=== PATIENT | female | born 1930 | race Caucasian/White ===

== ENCOUNTER 2020-08-28 02:26 | Inpatient (IN) | payer MEDICAID, MEDICARE ==
[~2020-08-28] VITALS: Ht 157.5 cm; Wt 58.6 kg
[2020-08-28] VITALS (31 sets, daily range): BP systolic 103–160; BP diastolic 54–82
[2020-08-28] MEDS ORDERED: NTG 50 MG/D5W250 ML BOTTL 250 ML IV ONE ×2 (02:28→02:30)
[2020-08-28] MEDS ORDERED: NITROGLYCERIN 0.4 MG/TAB BOTTLE ONE (02:28)
[2020-08-28] MEDS ORDERED: NITROGLYCERIN 0.4 MG/TAB BOTTLE SL ONE (02:30)
[2020-08-28] MEDS ORDERED: ENALAPRILAT DIHYD. (2.5MG/2ML) 1.25 MG/ML VIAL IV ONE ×2 (02:30→02:41)
[2020-08-28 02:40] LABS: BASOPHILS # (AUTO) 0.1 /CMM (0.0-0.2); BASOPHILS % (AUTO) 0.6 % (0.0-2.0); EOSINOPHILS % (AUTO) 1.5 % (0.0-6.0); HEMATOCRIT 31 % (33-45); HEMOGLOBIN 10.7 g/dL (11.5-14.8); LYMPHOCYTES # (AUTO) 1.9 /CMM (0.8-4.8); LYMPHOCYTES % (AUTO) 18.7 % (20.0-44.0); MEAN CORPUSCULAR HGB CONC 34 g/dl (31.0-36.0); MEAN CORPUSCULAR VOLUME 106 fL (82-100); MONOCYTES # (AUTO) 0.8 /CMM (0.1-1.30); MONOCYTES % (AUTO) 7.4 % (2.0-12.0); NEUTROPHILS # (AUTO) 7.4 /CMM (1.8-8.9); NEUTROPHILS % (AUTO) 71.8 % (43.0-81.0); PLATELET COUNT (AUTO) 284 /CMM (150-450); RED BLOOD CELL COUNT(AUTO) 2.96 MIL/uL (4.0-5.2); WHITE BLOOD COUNT (AUTO) 10.4 K/uL (4.3-11.0)
[2020-08-28 02:48] LABS: CALCIUM, SERUM 8.5 mg/dL (8.5-10.1); CARBON DIOXIDE 36 mmol/L (21-32); CHLORIDE 98 mmol/L (98-107); CREATININE 6.8 mg/dL (0.6-1.3); GLUCOSE 170 mg/dL (74-106); POTASSIUM 4.2 mmol/L (3.5-5.1); SODIUM SERUM 141 mmol/L (136-145); UREA NITROGEN, BLOOD 60 mg/dL (7-18)
[2020-08-28 03:01] LABS: ALANINE AMINOTRANSFERASE 35 U/L (12-78); ALBUMIN 4.4 g/dL (3.4-5.0); ALKALINE PHOSPHATASE 72 U/L (46-116); ASPARTATE AMINOTRANSFERASE 41 U/L (15-37); BILIRUBIN,DIRECT 0.1 mg/dL (0.0-0.2); BILIRUBIN,TOTAL 0.4 mg/dL (0.2-1.0); TOTAL PROTEIN, SERUM 8.1 g/dL (6.4-8.2)
[2020-08-28 03:11] LABS: BASOPHILS % (MANUAL) 0 % (0.0-2.0); EOSINOPHILS % (MANUAL) 0 % (0-4); LYMPHOCYTES % (MANUAL) 18 % (16-48); MONOCYTES % (MANUAL) 11 % (0-11.0); NEUTROPHILS % (MANUAL) 71 (42-76)
[2020-08-28] MEDS ORDERED: METO-358 PO (03:59)
[2020-08-28] MEDS ORDERED: PHEN100C12 PO (03:59)
[2020-08-28] MEDS ORDERED: CLON0.1T PO (03:59)
[2020-08-28] MEDS ORDERED: LISI20TA31 PO (03:59)
[2020-08-28] MEDS ORDERED: LEVO112T5 PO (03:59)
[2020-08-28] MEDS ORDERED: ATOR40TA PO (03:59)
[2020-08-28] MEDS ORDERED: FERR325T28 PO (03:59)
[2020-08-28] MEDS ORDERED: MECL-159 PO (03:59)
[2020-08-28] MEDS ORDERED: Z GUARD REMEDY 2 OZ OINT TP PRN (05:30)
[2020-08-28] MEDS ORDERED: MAGNESIUM HYDROXIDE 30 ML UDC PO PRN (05:30)
[2020-08-28] MEDS ORDERED: ZOLPIDEM TARTRATE 5 MG TABLET PO PRN (05:30)
[2020-08-28] MEDS ORDERED: ONDANSETRON HCL/PF 4 MG/2 ML VIAL IVP PRN (05:30)
[2020-08-28] MEDS ORDERED: MAG HYDROX/AL HYDROX/SIMETH 30 ML UDC PO PRN (05:30)
[2020-08-28] MEDS ORDERED: CLONIDINE HCL 0.1 MG TABLET PO PRN (05:30)
[2020-08-28] MEDS ORDERED: ACETAMINOPHEN 325 MG TABLET PO PRN (05:30)
[2020-08-28] MEDS: LEVOTHYROXINE SODIUM 112 MCG TABLET PO SCH (07:30)
[2020-08-28 09:16] LABS: ABG BASE EXCESS 7.2 mmol/L; ABG OXYGEN SATURATION 95.8 % (92.0-98.5); ABG PCO2 47.8 mmHg (35.0-45.0); ABG PH 7.445 (7.350-7.450); ABG PO2 85.1 mmHg (75.0-100.0); AaDO2 87.1 mmHg; COHb 0.1 % (0.5-1.5); MetHb 0.3 % (0.0-1.5); O2Hb 95.4 % (94.0-97.0); SITE, ABG Left Brachial
[2020-08-28] MEDS: FERROUS SULFATE (325 MG) 325 MG/TAB TABLET PO SCH (09:28)
[2020-08-28] MEDS: MECLIZINE HCL 25 MG TABLET PO SCH (09:28)
[2020-08-28] MEDS: PHENYTOIN EXTENDED RELEASE 100 MG CAPSULE PO SCH (09:28)
[2020-08-28] MEDS: ATORVASTATIN 40 MG TABLET PO SCH (09:28)
[2020-08-28] MEDS ORDERED: CALC667C6 PO (10:33)
[2020-08-28] MEDS ORDERED: NIFE90TA61 PO (10:33)
[2020-08-28] MEDS ORDERED: PHEN32.46 PO (10:33)
[2020-08-28] MEDS: METOPROLOL SUCCINATE 50 MG TAB.SR.24H PO SCH (14:09)
[2020-08-28] MEDS: LISINOPRIL (20MG) 20 MG TABLET PO SCH (14:09)
[2020-08-29] VITALS: BP 132/68
[2020-08-29 04:00] VITALS: BP 136/78
[2020-08-29 07:13] LABS: BASOPHILS % (AUTO) 0.7 % (0.0-2.0); EOSINOPHILS % (AUTO) 1.7 % (0.0-6.0); HEMATOCRIT 26 % (33-45); HEMOGLOBIN 8.6 g/dL (11.5-14.8); LYMPHOCYTES % (AUTO) 14.5 % (20.0-44.0); MEAN CORPUSCULAR HGB CONC 34 g/dl (31.0-36.0); MEAN CORPUSCULAR VOLUME 107 fL (82-100); MONOCYTES # (AUTO) 0.7 /CMM (0.1-1.30); NEUTROPHILS # (AUTO) 5.2 /CMM (1.8-8.9); NEUTROPHILS % (AUTO) 73.1 % (43.0-81.0); PLATELET COUNT (AUTO) 212 /CMM (150-450); RED BLOOD CELL COUNT(AUTO) 2.38 MIL/uL (4.0-5.2); WHITE BLOOD COUNT (AUTO) 7.1 K/uL (4.3-11.0)
[2020-08-29 07:38] LABS: CHOLESTEROL 157 mg/dL (<200); HDL CHOLESTEROL 61 mg/dL (40-60); LDL 71 mg/dL (0-99); TRIGLYCERIDES 99 mg/dL (30-150)
[2020-08-29 07:42] LABS: CALCIUM, SERUM 7.9 mg/dL (8.5-10.1); CARBON DIOXIDE 33 mmol/L (21-32); CHLORIDE 106 mmol/L (98-107); CREATININE 5.7 mg/dL (0.6-1.3); GLUCOSE 92 mg/dL (74-106); MAGNESIUM 2.4 mg/dL (1.8-2.4); PHOSPHORUS 4.3 mg/dL (2.5-4.9); POTASSIUM 4.6 mmol/L (3.5-5.1); SODIUM SERUM 147 mmol/L (136-145); UREA NITROGEN, BLOOD 42 mg/dL (7-18)
[2020-08-29 08:00] VITALS: BP 138/78
[2020-08-29 08:42] LABS: EOSINOPHILS % (MANUAL) 3 % (0-4); LYMPHOCYTES % (MANUAL) 11 % (16-48); MONOCYTES % (MANUAL) 7 % (0-11.0); NEUTROPHILS % (MANUAL) 79 (42-76)
[2020-08-29 08:53] LABS: IRON, SERUM 80 ug/dl (50-175)
[2020-08-29] MEDS: MECLIZINE HCL 25 MG TABLET PO SCH (09:12)
[2020-08-29] MEDS: ATORVASTATIN 40 MG TABLET PO SCH (09:12)
[2020-08-29] MEDS: PHENYTOIN EXTENDED RELEASE 100 MG CAPSULE PO SCH (09:12)
[2020-08-29] MEDS: FERROUS SULFATE (325 MG) 325 MG/TAB TABLET PO SCH (09:12)
[2020-08-29] MEDS: LEVOTHYROXINE SODIUM 112 MCG TABLET PO SCH (09:12)
[2020-08-29] MEDS: METOPROLOL SUCCINATE 50 MG TAB.SR.24H PO SCH (09:13)
[2020-08-29] MEDS: LISINOPRIL (20MG) 20 MG TABLET PO SCH (09:13)
[2020-08-29 09:53] LABS: TOTAL IRON BINDING CAPACITY 252 ug/dl (250-450)
[2020-08-29 12:00] VITALS: BP 142/73
== END 2020-08-29 17:46 | disposition home or self-care (01) | DRG 194 ==
LOC: EDBD 02:31 → ER 02:31 → TRANSITION 05:55 → ICU 07:43 → TELE1 15:24
PROVIDERS: ADMIT Nurse Practitioner Acute Care; ATTEND Internal Medicine
PROC: 5A1D70Z Performance of Urinary Filtration, Intermittent, Less than 6 Hours Per Day (ICD-10-PCS; principal; 2020-08-28)
DX: I13.2 Hypertensive heart and chronic kidney disease with heart failure and with stage 5 chronic kidney disease, or end stage renal disease (principal); J96.01 Acute respiratory failure with hypoxia; I48.91 Unspecified atrial fibrillation; N18.6 End stage renal disease; G40.909 Epilepsy, unspecified, not intractable, without status epilepticus; D63.1 Anemia in chronic kidney disease; E03.9 Hypothyroidism, unspecified; E78.5 Hyperlipidemia, unspecified; Z20.822 Contact with and (suspected) exposure to COVID-19; Z99.2 Dependence on renal dialysis; I50.31 Acute diastolic (congestive) heart failure; Z91.19 Patient's noncompliance with other medical treatment and regimen; Z91.11 Patient's noncompliance with dietary regimen; M89.8X9 Other specified disorders of bone, unspecified site
CPT/HCPCS: 36415; 36600; 71045-TC; 80048-TC; 80061-TC; 80076-TC; 82803-TC; 83540-TC; 83735-TC; 83880; 83970; 84100-TC; 84484-TC; 85025-TC; 85730-TC; 87081-TC; 93307-TC; 99082-TC; C9803; G0378; J2405; J3490; J8597